=== PATIENT | female | born 1930 | race Caucasian/White ===

== ENCOUNTER 2019-12-09 14:51 | Emergency (ER) | payer SELFPAY ==
[~2019-12-09] VITALS: Ht 162.6 cm; Wt 59.0 kg
[2019-12-09] MEDS ORDERED: HYDROcodone-ACET 5/325MG TAB PO ONE (18:00)
[2019-12-09 19:30] VITALS: BP 170/85
== END 2019-12-09 20:38 | disposition home or self-care (01) ==
LOC: EDBD 14:51 → ER 14:51
DX: S42.292A Other displaced fracture of upper end of left humerus, initial encounter for closed fracture (principal); I10 Essential (primary) hypertension; W01.0XXA Fall on same level from slipping, tripping and stumbling without subsequent striking against object, initial encounter; Y93.89 Activity, other specified; Y99.8 Other external cause status; Y92.89 Other specified places as the place of occurrence of the external cause
CPT/HCPCS: 73030

== ENCOUNTER 2019-12-21 14:53 | Emergency (ER) | payer BC, OTHER ==
[~2019-12-21] VITALS: Ht 162.6 cm; Wt 54.4 kg
[2019-12-21 17:01] VITALS: BP 142/64
== END 2019-12-21 18:15 | disposition home or self-care (01) ==
LOC: ER 14:53 → EDBD 14:53 → ER 18:15
DX: M25.512 Pain in left shoulder (principal); I10 Essential (primary) hypertension; M79.602 Pain in left arm
CPT/HCPCS: 93971